=== PATIENT | female | born 1970 | race Caucasian/White ===

== ENCOUNTER 2016-11-29 17:36 | Observation (INO) | payer BC, OTHER ==
[2016-11-29 18:26] LABS: Basophils % (A) 0 %; CHCM 33.2; Eosinophils # (A) 0.1 k/uL (0-0.7); Eosinophils % (A) 1 %; HCT 38.5 % (34.0-46.0); HDW 2.26; HGB 13.1 gm/dL (11.4-16.0); Luc # (Auto) 0.33; Luc % (Auto) 3; Lymphocytes # (A) 4.1 k/uL (1.0-4.8); Lymphocytes % (A) 36 %; MCH 34.1 pg (25.0-35.0); MCV 100.2 fL (80.0-100.0); Mean Platelet Volume 7.3; Monocytes # (A) 0.3 k/uL (0-1.0); Monocytes % (A) 2 %; Neutrophils # (A) 6.6 k/uL (1.3-7.7); Neutrophils % (A) 58 %; RBC 3.84 m/uL (3.80-5.40); RDW 13.1 % (11.5-15.5); WBC 11.3 k/uL (3.8-10.6); WBC (Perox) 11.58
--- NOTE | 2016-11-29 18:28 | ED ---
Chest Pain HPI - General Chief Complaint: Chest Pain Stated Complaint: chest pain Time Seen by Provider: 11/29/16 17:59 Source: patient, RN notes reviewed Mode of arrival: ambulatory Limitations: no limitations - History of Present Illness Initial Comments: Patient is a 46-year-old female with chief complaint of chest pain for the past 3 days. Patient reports that is becoming increasingly worse today. Patient reports that she's had episodes of shortness of breath. Patient states that she is history of anxiety and took 2 Xanax today and [place] for her back pain however the chest pain continued persist. Patient denies any abdominal pain, diaphoresis or lightheaded or dizziness. Patient states that she has a family history of heart disease. She states that she has no history of high blood pressure or diabetes. Patient also reports that she has severe anxiety and this became much worse with recent family issues. Patient reports that she wants to see his psychiatrist and start Prozac or another SSRI for anxiety management. - Related Data Home Medications Medication Instructions Recorded Confirmed Butalb/Acetaminophen/Caffeine 1 - 2 cap PO Q6H PRN 11/29/16 11/29/16 [Fioricet 50-300-40 mg Capsule] HYDROcodone/APAP 5-325MG [[place] 1 tab PO TID PRN 11/29/16 11/29/16 5-325] Zolpidem [Ambien] 5 mg PO HS PRN 11/29/16 11/29/16 Previous Rx's Medication Instructions Recorded ALPRAZolam [Xanax] 0.25 mg PO BID PRN #20 tab 04/19/15 Allergies Allergy/AdvReac Type Severity Reaction Status Date / Time No Known Allergies Allergy Verified 11/29/16 18:15 Review of Systems ROS Statement: Those systems with pertinent positive or pertinent negative responses have been documented in the HPI. ROS Other: All systems not noted in ROS Statement are negative. Past Medical History Past Medical History: Cancer Additional Past Medical History / Comment(s): breast CA bilaterally, mastectomy with reconstruction, cerbral aneurysm ddd kidnesy stones History of Any Multi-Drug Resistant Organisms: None Reported Past Surgical History: Appendectomy, Tubal Ligation Additional Past Surgical History / Comment(s): Brain anrysum, Tubes tied Past Anesthesia/Blood Transfusion Reactions: No Reported Reaction Past Psychological History: Anxiety Smoking Status: Current every day smoker Past Alcohol Use History: Occasional Past Drug Use History: None Reported - Past Family History Mother Additional Family Medical History / Comment(s): heart problems Father Family Medical History: Myocardial Infarction ([place]) General Exam - General Exam Comments Initial Comments: Anxious 38-year-old female. Limitations: no limitations General appearance: alert, in no apparent distress Head exam: Present: atraumatic, normocephalic, normal inspection Eye exam: Present: normal appearance, PERRL, EOMI. Absent: scleral icterus, conjunctival injection, periorbital swelling ENT exam: Present: normal exam, mucous membranes moist Neck exam: Present: normal inspection Respiratory exam: Present: normal lung sounds bilaterally. Absent: respiratory distress, wheezes, rales, rhonchi, stridor Cardiovascular Exam: Present: regular rate, normal rhythm, normal heart sounds. Absent: systolic murmur, diastolic murmur, rubs, gallop, clicks GI/Abdominal exam: Present: soft, normal bowel sounds. Absent: distended, tenderness, guarding, rebound, rigid Extremities exam: Present: normal inspection, full ROM, normal capillary refill. Absent: tenderness, pedal edema, joint swelling, calf tenderness Back exam: Present: normal inspection, full ROM Neurological exam: Present: alert, oriented X3, CN II-XII intact Psychiatric exam: Present: normal affect, normal mood Skin exam: Present: warm, dry, intact, normal color. Absent: rash Course Vital Signs 11/29/16 11/29/16 17:47 20:35 Temperature 97.5 F L 98.7 F Pulse Rate 79 76 Respiratory 20 16 Rate Blood Pressure 120/68 118/59 O2 Sat by Pulse 100 99 Oximetry Chest Pain [facility] Patient is a 46-year-old female with chief complaint of chest pain for the past 3 days. Patient reports that is becoming increasingly worse today. Patient reports that she's had episodes of shortness of breath. Patient states that she is history of anxiety and took 2 Xanax today and [place] for her back pain however the chest pain continued persist. Patient appears to be extremely anxious. Patient also that she has a stress months to see his psychiatrist started a medication such as Prozac. Patient reports that her chest pain is continue to persist. Patient was given IV pain medication. Patient will be admitted at this time for serial troponin and cardiac enzymes. Disposition Clinical Impression: Chest pain Disposition: ADMITTED IP TO THIS HOSP Time of Disposition: 20:45
[2016-11-29 18:39] LABS: INR 0.9 (<1.1); Prothrombin Time 9.7 sec (9.0-12.0)
[2016-11-29] MEDS ORDERED: SODIUM CHLORIDE 0.9% 1,000 ML IV ONE (18:39)
[2016-11-29] MEDS ORDERED: LORazepam 2 MG/ML SYRINGE IV STA (18:39)
[2016-11-29 18:40] LABS: Partial Thromboplastin Time 25.6 sec (22.0-30.0)
[2016-11-29] MEDS ORDERED: SODIUM CHLORIDE 0.9% 1,000 ML IV SCH (18:45)
[2016-11-29 18:49] LABS: ALT 19 U/L (9-52); AST 19 U/L (14-36); Alkaline Phosphatase 80 U/L (38-126); Anion Gap 11 mmol/L; Blood Urea Nitrogen 11 mg/dL (7-17); Calcium 9.4 mg/dL (8.4-10.2); Carbon Dioxide 21 mmol/L (22-30); Chloride 107 mmol/L (98-107); Glucose 77 mg/dL (74-99); Magnesium 2.2 mg/dL (1.6-2.3); Non-African American GFR(MDRD) >60 (>60 ml/min/1.73 sqM); Sodium 139 mmol/L (137-145); Total Bilirubin 0.5 mg/dL (0.2-1.3); Total Protein 7.3 g/dL (6.3-8.2)
[2016-11-29 18:50] LABS: Creatine Kinase 105 U/L (30-135)
[2016-11-29 19:01] LABS: Creatine Kinase MB 0.6 ng/mL (0.0-2.4); Troponin I <0.012 ng/mL (0.000-0.034)
--- NOTE | 2016-11-29 19:10 | XR ---
EXAMINATION TYPE: XR chest 2V DATE OF EXAM: 11/29/2016 7:05 PM COMPARISON: Prior chest x-ray April 18, 2015. HISTORY: Chest pain for 3 days. History of breast cancer. TECHNIQUE: Frontal and lateral views of the chest are obtained. FINDINGS: There is chronic parenchymal change without suspicious focal air space opacity, pleural ef fusion, or pneumothorax seen bilaterally. The cardiac silhouette size is within normal limits. The osseous structures are intact. IMPRESSION: No acute cardiopulmonary process. No significant change from prior.
[2016-11-29 19:52] LABS: Appearance,Urine Clear (Clear); Bacteria,Urine Rare /hpf; Bilirubin,Urine Negative (Negative); Glucose,Urine (UA) Negative (Negative); Ketones,Urine Negative (Negative); Leukocyte Esterase,Urine Trace (Negative); Mucus,Urine Rare /hpf; Nitrite,Urine Negative (Negative); PH, Urine 5.5 (5.0-8.0); Particle Count 2719; Protein,Urine Negative (Negative); RBC,Urine 2 /hpf (0-5); Specific Gravity,Urine 1.008 (1.001-1.035); Sperm,Urine Rare /hpf; Squamous Epithelial Cell,Urine 2 /hpf (0-4); UA Billing (MACRO vs. MICRO) MICRO; Urobilinogen,Urine <2.0 mg/dL (<2.0); WBC,Urine 8 /hpf (0-5)
[2016-11-29] MEDS ORDERED: NITROGLYCERIN SL TABS 0.4 MG TAB SUBLINGUAL STA (20:02)
[2016-11-29] MEDS ORDERED: HYDROmorphone 1 MG/ML 1 ML SYRINGE IVP STA (20:08)
[2016-11-29] MEDS ORDERED: IBUPROFEN 400 MG TAB PO PRN (20:46)
[2016-11-29] MEDS ORDERED: KETOROLAC 30 MG/ML 1 ML VIAL IVP PRN (20:46)
[2016-11-29] MEDS ORDERED: NALOXONE 0.4 MG/ML 1 ML VIAL IV PRN (20:46)
[2016-11-29] MEDS ORDERED: NICOTINE 21MG/24HR PATCH TRANSDERM STA (21:17)
[2016-11-29] MEDS: HYDROmorphone 1 MG/ML 1 ML SYRINGE IV PRN (22:35)
[2016-11-29] MEDS: LORazepam 2 MG/ML SYRINGE IV PRN (22:38)
[2016-11-30 01:12] LABS: Creatine Kinase 76 U/L (30-135)
[2016-11-30 01:25] LABS: Creatine Kinase MB 0.5 ng/mL (0.0-2.4); Troponin I <0.012 ng/mL (0.000-0.034)
[2016-11-30] MEDS: HYDROmorphone 1 MG/ML 1 ML SYRINGE IV PRN ×2 (04:35→08:00)
[2016-11-30] MEDS: LORazepam 2 MG/ML SYRINGE IV PRN (04:53)
[2016-11-30 07:32] LABS: Creatine Kinase 72 U/L (30-135)
[2016-11-30 07:46] LABS: Creatine Kinase MB 0.3 ng/mL (0.0-2.4); Troponin I <0.012 ng/mL (0.000-0.034)
[2016-11-30 07:47] VITALS: RESP 18
[2016-11-30] MEDS ORDERED: DOBUTamine DRIP for NUC MED 500 MG in DEXTROSE/WATER 1 250ML.BAG IV ONE (09:06)
--- NOTE | 2016-11-30 09:20 | CONS ---
DATE OF CONSULTATION: CHIEF COMPLAINT: Chest pain. Landy is a 46-year-old lady with history of anxiety and pain who regularly takes Xanax, Ambien and Percocet, who came to hospital complaining of chest pain. She describes it as a sharp precordial pain unrelated to exertion and unassociated with diaphoresis. At the time of my evaluation, she is pain free, hemodynamically stable and in no apparent distress. The patient had similar symptoms in 2015 and had a dobutamine stress test that was negative for ischemia. Past medical history is negative for hypertension, diabetes, dyslipidemia. MEDICATIONS: As described. ALLERGIES: As charted. FAMILY HISTORY: Negative for premature coronary artery disease. Social history is significant for smoking. There is no history of EtOH abuse or drug abuse. REVIEW OF SYSTEMS: HEENT: Unremarkable. CARDIAC: As described above. RESPIRATORY: Negative. GI: Negative. GENITOURINARY: Negative. ALLERGY/IMMUNOLOGICAL: Negative. SKIN: Negative. MUSCULOSKELETAL: Significant so for arthritis. PSYCHOSOCIAL: Negative. ENDOCRINE: Negative. HEMATOLOGICAL: Negative. CONSTITUTIONAL: Negative. ONCOLOGICAL: Negative. The rest of the system review is not relevant. On exam, comfortable at rest. Vital signs are stable. There is no jugular venous distention. Carotid upstrokes normal. There is no bruit. Chest is clear to auscultation and percussion. Heart exam reveals first and second heart sounds. No gallop. No murmur, no rub. Abdomen is soft, nontender. Exam of extremities did not reveal edema. Peripheral pulses are felt. EKG does not reveal ischemic changes. Rhythm strip shows that she is in sinus rhythm. Cardiac enzymes are negative. ASSESSMENT: Atypical chest pain syndrome. PLAN: Patient will undergo a dobutamine echo and if this is negative, she will go home. If it is abnormal, she will undergo further evaluation.
[2016-11-30] MEDS: Acetaminophen-Codeine 300-30mg TAB PO PRN ×2 (09:56→13:58)
[2016-11-30] MEDS ORDERED: ATROPINE SULFATE 0.1 MG/ML 10ML SYRINGE ONE (11:13)
--- NOTE | 2016-11-30 11:36 | ECHOF ---
Referral Reason:chest pain MEASUREMENTS -------- HEIGHT: 162.6 cm WEIGHT: 52.2 kg BP: 97/58 RVIDd: 2.1 cm (< 3.3) IVSd: 1.3 cm (0.6 - 1.1) LVIDd: 3.5 cm (3.9 - 5.3) LVPWd: 1.3 cm (0.6 - 1.1) IVSs: 1.9 cm LVIDs: 2.2 cm LVPWs: 1.5 cm LA Diam: 2.9 cm (2.7 - 3.8) LAESV Index (A-L): 25.61 ml/m Ao Diam: 2.6 cm (2.0 - 3.7) AV Cusp: 1.5 cm (1.5 - 2.6) LA Diam: 2.4 cm (2.7 - 3.8) MV EXCURSION: 12.451 mm (> 18.000) MV EF SLOPE: 92 mm/s (70 - 150) EPSS: 0.6 cm MV E Dhiraj: 0.85 m/s MV DecT: 211 ms MV A Dhiraj: 0.89 m/s MV E/A Ratio: 0.95 RAP: 5.00 mmHg RVSP: 35.25 mmHg FINDINGS -------- Sinus rhythm. This was a technically good study. The left ventricular size is normal. There is mild concentric left ventricular hypertrophy. Overall left ventricular systolic function is normal with, an EF between 55 - 60 %. The right ventricle is normal in size. Normal LA size by volume 22+/-6 ml/m2. The right atrium is normal in size. The aortic valve is trileaflet, and appears structurally normal. No aortic stenosis or regurgitation. The mitral valve leaflets are mildly thickened. There is trace to mild mitral regurgitation. The tricuspid valve appears structurally normal. Mild tricuspid regurgitation present. Right ventricular systolic pressure is normal at < 35 mmHg. There is no pulmonic regurgitation present. The aortic root, ascending aorta and aortic arch are normal. The inferior vena cava is mildly dilated. There is no pericardial effusion. CONCLUSIONS -------- 1. Sinus rhythm. 2. Right ventricular systolic pressure is normal at < 35 mmHg. 3. There is no pulmonic regurgitation present. 4. The aortic root, ascending aorta and aortic arch are normal. 5. The inferior vena cava is mildly dilated. 6. There is no pericardial effusion. 7. This was a technically good study. 8. There is mild concentric left ventricular hypertrophy. 9. Overall left ventricular systolic function is normal with, an EF between 55 - 60 %. 10. The right ventricle is normal in size. 11. Normal LA size by volume 22+/-6 ml/m2. 12. The aortic valve is trileaflet, and appears structurally normal. No aortic stenosis or regurgitation. 13. The mitral valve leaflets are mildly thickened. 14. Mild tricuspid regurgitation present. [employer] ENGINEER: Violet Ojeda RDCS
[2016-11-30 11:47] VITALS: BP 98/63; PULSE 80; TEMP 98.8
[2016-11-30] MEDS ORDERED: FLUoxetine HCL 20 MG CAP PO SCH (12:00)
[2016-11-30] MEDS ORDERED: clonazePAM 0.5 MG TAB PO SCH (12:00)
--- NOTE | 2016-11-30 12:12 | P.HPIM ---
History of Present Illness H&P Date: 11/30/16 Chief Complaint: Chest pain Patient is a 46-year-old white female, patient of Dr. Ahumada in the outpatient setting, with medical history significant for bilateral breast cancer with mastectomy and reconstruction, cerebral aneurysm, anterior disc disease, and nephrolithiasis. Patient presented to the emergency department with complaints of substernal chest pain associated with shortness of breath 3 days. No other associated symptoms. Chest pain exacerbated with anxiety, relieved with rest. Patient has a history of severe anxiety exacerbated recently with family issues. Patient states she smokes 5 cigarettes a day. Chest x-ray with no acute cardiopulmonary process. EKG with no ischemic changes. Echocardiogram with Doppler with preserved LV function of 55-60%. Troponins less than 0.012 3. Urinalysis with moderate amount of blood, trace leukocyte esterase, and 8 WBC. Urinalysis positive for opiates, barbiturates, and benzodiazepines. Patient was admitted for observation and cardiology consult. Patient is currently awaiting dobutamine stress test. Upon examination, patient continues to complain of chest discomfort currently rated 3 out of 10. Patient describes pain as sharp. Patient has a nonproductive cough. Denies chills, fevers, nausea, vomiting, shortness of breath, chest pain, abdominal pain, diarrhea or constipation, dysuria, urgency, or hematuria. Denies leg swelling. Afebrile. Hemodynamically stable. Past Medical History Past Medical History: Cancer Additional Past Medical History / Comment(s): breast CA bilaterally, mastectomy with reconstruction, cerbral aneurysm ddd kidnesy stones History of Any Multi-Drug Resistant Organisms: None Reported Past Surgical History: Appendectomy, Tubal Ligation Additional Past Surgical History / Comment(s): Brain anrysum, Tubes tied Past Anesthesia/Blood Transfusion Reactions: No Reported Reaction Past Psychological History: Anxiety Additional Psychological History / Comment(s): pt lives with spouse and 1 son, 1 cat, 1 dog. has 3 seps to get into house. pt independant, works at [employer]. Smoking Status: Current every day smoker Past Alcohol Use History: Occasional Additional Past Alcohol Use History / Comment(s): started smoking at age 13 smokes 5 cig/day Past Drug Use History: None Reported - Past Family History Mother Additional Family Medical History / Comment(s): heart problems Father Family Medical History: Myocardial Infarction ([place]) Medications and Allergies Home Medications Medication Instructions Recorded Confirmed Type Butalb/Acetaminophen/Caffeine 1 - 2 cap PO Q6H PRN 11/29/16 11/29/16 History [Fioricet 50-300-40 mg Capsule] HYDROcodone/APAP 5-325MG [[place] 1 tab PO TID PRN 11/29/16 11/29/16 History 5-325] Zolpidem [Ambien] 5 mg PO HS PRN 11/29/16 11/29/16 History Allergies Allergy/AdvReac Type Severity Reaction Status Date / Time No Known Allergies Allergy Verified 11/29/16 18:15 Physical Exam Vitals: Vital Signs Temp Pulse Resp BP Pulse Ox 11/30/16 11:46 98.8 F 80 18 98/63 98 11/30/16 08:30 18 11/30/16 08:00 18 11/30/16 07:46 98.4 F 79 18 97/58 96 11/30/16 04:00 98.4 F 85 16 97/61 96 11/30/16 00:00 18 11/29/16 21:40 97.8 F 87 16 105/70 98 GENERAL: Pt awake and alert, anxious, in no acute distress. HEAD: Atraumatic, normocephalic. EYES: Pupils equal, round, and reactive to light, extraocular movements intact, sclera anicteric, conjunctiva are normal. ENT: Moist mucous membranes. NECK: Supple without lymphadenopathy or JVD. LUNGS: Breath sounds slightly diminished to auscultation bilaterally. No wheezes, rales, or rhonchi. Nonproductive cough. HEART: Heart S1, S2, no S3 or S4. Regular rate and rhythm. No murmurs, rubs or gallops. ABDOMEN: Soft, nontender, nondistended, normoactive bowel sounds. No guarding, no rebound. No masses or organomegaly appreciated. EXTREMITIES: Palpable peripheral pulses. No edema. No calf tenderness. NEUROLOGICAL: Pt oriented x 3. No focal deficits noted. Strength and sensation grossly intact. PSYCH: Anxious. SKIN: Warm, dry, intact. No rashes or lesions. Results CBC & Chem 7: 11/29/16 18:15 11/29/16 18:15 Chest x-ray: report reviewed Thrombosis Risk Factor Assmnt - DVT/VTE Prophylaxis DVT/VTE Prophylaxis: Low risk, early ambulation encouraged - Choose All That Apply Any of the Below Risk Factors Present?: Yes Each Factor Represents 1 point: Age 41-60 years Other Risk Factors: No Other congenital or acquired thrombophilia - If yes, enter type in comment: No Thrombosis Risk Factor Assessment Total Risk Factor Score: 1 Thrombosis Risk Factor Assessment Level: Low Risk Assessment and Plan Plan: Impression and plan: 1. Chest pain, present on admission. Troponins negative. EKG with no ischemic process. Echocardiogram with preserved LV function. Patient is scheduled to undergo debridement stress test. 2. Leukocytosis, suspect reactive. 3. Possible urinary tract infection. Patient asymptomatic. Will obtain urine culture. 4. History of bilateral breast cancer with mastectomy and reconstruction. 5. History of cerebral aneurysm. 6. History of degenerative disc disease. 7. Anxiety, uncontrolled. Start patient on Klonopin 0.5 mg by mouth twice a day and Prozac 20 mg daily. 8. Nicotine dependence. Smoking cessation encouraged. Continue to monitor patient. Continue supportive treatment and pain management. Await result of stress test, if clear patient may be discharged home and follow up with Dr. Banerjee in the outpatient setting. The above impression and plan have been discussed and directed by Dr. Banerjee. Konrad KRAFT acting as scribe for Dr. Banerjee.
--- NOTE | 2016-11-30 12:39 | ECHOS ---
DATE OF SERVICE: 11/30/2016 AGE: 46Y SEX: F HT: 63" WT: 120 lbs. Protocol Tj: Others: Dobutamine Stress Echo Stage: 3 Dur. of Exercise: 7:15 *Heart Rate Blood Pressure *Rest: 70 Rest: 110/70 * *Max. Achieved: 148 Maximum BP: 200/117 85% PMHR: 146 100% PMHR: 172 *METS: - INDICATIONS: Chest pain. MEDICATIONS: - Baseline rhythm is sinus mechanism, rate of 70, normal axis and intervals. Minor nonspecific ST-T-wave changes. Baseline blood pressure 110/70 mmHg. Patient received an infusion dobutamine and 0.5 mg of IV atropine. Peak rate 148 beats per minute, which is equal to 86% maximum predicted heart rate; peak blood pressure 200/117 mmHg. Electrocardiograph monitoring revealed occasional PVCs. There was no evidence of diagnostic ischemic ST deviation. FINDINGS: Baseline echocardiogram revealed normal wall motion. At peak infusion, there was mild hypokinesis involving the inferior and inferoseptal wall that improved in recovery. CONCLUSION: 1. Normal electrocardiograph response to dobutamine infusion with rare premature ventricular contractions. 2. Abnormal stress echocardiogram with inferior and inferoseptal wall hypokinesis.
--- NOTE | 2016-11-30 15:40 | P.DS ---
Providers Date of admission: 11/29/16 21:11 Expected date of discharge: 11/30/16 Attending physician: Tiom Banerjee Consults: 11/30/16 09:00 Consult Physician Urgent Consulting Provider: Russell Storey Consult Reason/Comments: chest pain Do you want consulting provider notified?: Yes Primary care physician: [facility] Course: Patient is a 46-year-old white female, patient of Dr. Ahumada in the outpatient setting, with medical history significant for bilateral breast cancer with mastectomy and reconstruction, cerebral aneurysm, anterior disc disease, and nephrolithiasis. Patient presented to the emergency department with complaints of substernal chest pain associated with shortness of breath 3 days. No other associated symptoms. Chest pain exacerbated with anxiety, relieved with rest. Patient has a history of severe anxiety exacerbated recently with family issues. Patient states she smokes 5 cigarettes a day. Chest x-ray with no acute cardiopulmonary process. EKG with no ischemic changes. Echocardiogram with Doppler with preserved LV function of 55-60%. Troponins less than 0.012 3. Urinalysis with moderate amount of blood, trace leukocyte esterase, and 8 WBC. Urinalysis positive for opiates, barbiturates, and benzodiazepines. Patient was admitted for observation and cardiology consult. Patient underwent dobutamine stress test with evidence of mild hypokinesis involving the inferior and inferoseptal wall that improved in recovery. Patient was offered heart catheterization but declined. Patient will follow-up with cardiology service in 2 weeks to schedule possible heart catheterization. Patient will follow-up with Dr. Banerjee in 1-2 days as an outpatient. Discharge diagnoses: 1. Chest pain, present on admission, with abnormal dobutamine stress test. 2. Leukocytosis, suspect reactive. 3. Possible urinary tract infection. 4. History of bilateral breast cancer with mastectomy and reconstruction. 5. History of cerebral aneurysm. 6. History of degenerative disc disease. 7. Anxiety, uncontrolled. 8. Nicotine dependence. The above impression and plan have been discussed and directed by Dr. Banerjee. Konrad KRAFT acting as scribe for Dr. Banerjee. Pertinent Studies: Chest x-ray; EKG; echocardiogram with Doppler; dobutamine stress test echo Patient Condition at Discharge: Stable Plan - Discharge Summary New Discharge Prescriptions: Aspirin 81 mg PO DAILY #30 chewable FLUoxetine HCL [PROzac] 20 mg PO DAILY #30 cap Nitroglycerin Sl Tabs [Nitrostat] 0.4 mg SUBLINGUAL Q5M PRN #30 tab PRN Reason: Pain clonazePAM [KlonoPIN] 0.25 mg PO BID #60 tablet Discharge Medication List HYDROcodone/APAP 5-325MG [[place] 5-325] 1 tab PO TID PRN 11/29/16 [History] Zolpidem [Ambien] 5 mg PO HS PRN 11/29/16 [History] Aspirin 81 mg PO DAILY #30 chewable 11/30/16 [Rx] FLUoxetine HCL [PROzac] 20 mg PO DAILY #30 cap 11/30/16 [Rx] Nitroglycerin Sl Tabs [Nitrostat] 0.4 mg SUBLINGUAL Q5M PRN #30 tab 11/30/16 [Rx ] clonazePAM [KlonoPIN] 0.25 mg PO BID #60 tablet 11/30/16 [Rx] Follow up Appointment(s)/Referral(s): Mohinder Ahumada Jr, DO [Primary Care Provider] - 1-2 days Russell Storey MD [STAFF PHYSICIAN] - 2 Weeks (Appointment made for December 12 at 3:45pm.) Patient Instructions/Handouts: Chest Pain (DC) Discharge Disposition: HOME SELF-CARE Pending Studies Pending Results: Urine culture
== END 2016-11-30 14:28 | disposition home or self-care (01) ==
LOC: EC 17:36 → 3OBS 21:11
PROVIDERS: ADMIT Family Medicine; ATTEND Family Medicine
DX: R07.89 Other chest pain (principal); Z82.49 Family history of ischemic heart disease and other diseases of the circulatory system; Z85.3 Personal history of malignant neoplasm of breast; Z87.442 Personal history of urinary calculi; F41.9 Anxiety disorder, unspecified; Z90.13 Acquired absence of bilateral breasts and nipples; F17.210 Nicotine dependence, cigarettes, uncomplicated
CPT/HCPCS: 96374 ×2; 96375 ×2; 96361 ×3; 99285 ×2; 36415; 93005; 93017; 93306; 93350; 80053; 82550 ×2; 82553 ×2; 83735; 84484 ×2; 85025; 85610; 85730; 81001; 80306; 71020; G0378 ×2; S4990; J2060 ×2; J1250; J0461; J1170 ×2; 96376

== ENCOUNTER 2016-12-19 06:29 | Day surgery (SDC) | payer BC, OTHER ==
[2016-12-13 14:50] VITALS: BMI 21.4
[~2016-12-19 06:29] MED LIST: ALPRAZolam 0.25 MG TAB PO PRN; ASPIRIN 325 MG TAB PO ONE; SODIUM CHLORIDE 0.9% 1,000 ML in EMPTY BAG 1 BAG IV ONE
[2016-12-19 06:59] VITALS: PULSE 85; TEMP 98.4
[2016-12-19] MEDS ORDERED: IV FLUID CONTINUATION 1,000 ML IV ONE (07:11)
[2016-12-19] MEDS ORDERED: LIDOCAINE 2% INJ 20 MG/ML (20 ML MDV) ONE (07:17)
[2016-12-19] MEDS ORDERED: MIDAZOLAM 2 MG/2 ML VIAL ONE (07:29)
[2016-12-19] MEDS: MIDAZOLAM 2 MG/2 ML VIAL IV ONE ×2 (07:30→07:40)
[2016-12-19] MEDS ORDERED: LIDOCAINE 2% INJ 20 MG/ML SQ ONE (07:33)
[2016-12-19] MEDS ORDERED: fentaNYL (PF) 50 MCG/ML 2 ML AMP ONE (07:34)
[2016-12-19] MEDS ORDERED: fentaNYL (PF) 50 MCG/ML 2 ML AMP IV ONE (07:40)
[2016-12-19] MEDS ORDERED: IOHEXOL 350 MG/ML 100 ML BOTTLE INJ ONE (07:51)
[2016-12-19] MEDS ORDERED: RX INFO: IV CONTRAST WAS GIVEN 1 EACH MISC MISCELLANE PRN (07:55)
[2016-12-19] MEDS ORDERED: SODIUM CHLORIDE 0.9% 1,000 ML IV SCH (08:00)
--- NOTE | 2016-12-19 08:12 | CC ---
DATE OF SERVICE: INDICATION: Chest pain with abnormal stress echocardiogram. PROCEDURE NOTE: After obtaining informed consent, left heart catheterization, coronary angiogram and LV gram are performed via the right femoral artery using standard Siva catheters. Patient tolerated the procedure well without any obvious immediate complications. A femoral angiogram was performed and Angio-Seal will be deployed for hemostasis. FINDINGS: 1. HEMODYNAMICS: Left ventricular end-diastolic pressure is 8 to 12 mm. There is no significant gradient across the aortic valve. 2. LEFT VENTRICULOGRAM: Left ventriculogram was not performed. 3. ANGIOGRAPHIC DATA: LEFT MAIN CORONARY ARTERY: Left main coronary artery is a normal size vessel and is free of stenosis. It divides into left anterior descending coronary artery and circumflex coronary artery. LAD shows mild atherosclerotic plaque in its midportion as does the circumflex coronary artery. Right coronary artery is a large dominant vessel and shows mild atherosclerotic plaque clock in its midportion. CONCLUSION: Mild nonobstructive coronary artery disease. PLAN: I reviewed angiographic data with the patient and advised her on medical therapy at this time. She is a smoker and I advised her to quit smoking.
[2016-12-19] MEDS ORDERED: BUTALB/APAP/CAFF 50-325-40MG TAB PO STA (08:52)
[2016-12-19] MEDS ORDERED: HYDROcodone/APAP 5-325MG 1 EACH TAB PO STA (08:52)
[2016-12-19] MEDS ORDERED: HYDROmorphone 1 MG/ML 1 ML SYRINGE IVP PRN (10:12)
[2016-12-19 10:19] VITALS: RESP 20
[2016-12-19 13:34] VITALS: BP 111/72
== END 2016-12-19 13:00 | disposition home or self-care (01) ==
LOC: CATHCVL 06:29
PROVIDERS: ATTEND Internal Medicine Cardiovascular Disease
DX: I25.10 Atherosclerotic heart disease of native coronary artery without angina pectoris (principal); R94.39 Abnormal result of other cardiovascular function study; R07.2 Precordial pain; F17.210 Nicotine dependence, cigarettes, uncomplicated; Z82.49 Family history of ischemic heart disease and other diseases of the circulatory system; Z79.82 Long term (current) use of aspirin; Z79.899 Other long term (current) drug therapy
CPT/HCPCS: 93458; 81025; C1760; C1894; C1769; J2001; J2250; Q9967; J3010